=== PATIENT | female | born 1995 | race Caucasian/White ===

== ENCOUNTER 2018-07-06 17:02 | Emergency (ER) | payer MEDICAID ==
[~2018-07-06] VITALS: Ht 160 cm; Wt 62.6 kg
[2018-07-06 17:10] VITALS: Ht 160 cm; Wt 62.6 kg
[2018-07-06 18:45] VITALS: BP 118/77
== END 2018-07-06 18:55 | disposition home or self-care (01) ==
LOC: ED 17:02
DX: S00.03XA Contusion of scalp, initial encounter (principal); V19.88XA Pedal cyclist (driver) (passenger) injured in other specified transport accidents, initial encounter; W18.09XA Striking against other object with subsequent fall, initial encounter; Y93.89 Activity, other specified; Y92.218 Other school as the place of occurrence of the external cause; Y99.8 Other external cause status

== ENCOUNTER 2019-08-24 17:21 | Emergency (ER) | payer OTHER ==
[~2019-08-24] VITALS: Ht 157.5 cm; Wt 70.8 kg
[2019-08-24 17:36] VITALS: Ht 157.5 cm; Wt 70.8 kg
[2019-08-24 18:08] VITALS: BP 125/81
== END 2019-08-24 18:08 | disposition home or self-care (01) ==
LOC: ED 17:21
DX: L08.9 Local infection of the skin and subcutaneous tissue, unspecified (principal)